=== PATIENT | male | born 1990 | race Two or more races ===

== ENCOUNTER 2022-09-21 17:36 | Emergency (ER) | payer SELFPAY ==
[~2022-09-21] VITALS: Ht 167.6 cm; Wt 100.0 kg
[2022-09-21] MEDS ORDERED: INDO25CA17 PO ×2 (23:28→23:51)
[2022-09-22] VITALS: BP 111/71
[2022-09-22] MEDS ORDERED: ACETAMINOPHEN 325 MG TAB PO ONE
== END 2022-09-22 00:02 | disposition home or self-care (01) ==
LOC: ER 17:36
DX: M10.9 Gout, unspecified (principal)
CPT/HCPCS: 36415; 84550